=== PATIENT | female | born 1945 | race Caucasian/White ===

== ENCOUNTER 2023-12-15 06:00 | Day surgery (SDC) | payer MEDICARE, OTHER ==
[~2023-12-15 06:00] MED LIST: Sodium Chloride 0.9% 10 ML Syringe FLUSH PRN; Sodium Chloride 0.9% 10 ML Syringe FLUSH SCH
[2023-12-15] MEDS ORDERED: Propofol 200 MG/20 ML SDV ONE ×3 (06:06→07:52)
[2023-12-15] MEDS ORDERED: fentaNYL 100 MCG/2 ML SDV ONE ×2 (06:07→08:14)
[2023-12-15] MEDS ORDERED: ceFAZolin 2 GM Vial ONE (06:15)
[2023-12-15] MEDS: Lactated Ringers 1,000 ML IV SCH (06:30)
[2023-12-15] MEDS ORDERED: Midazolam 1 MG/ML 2 ML SDV ONE (07:42)
[2023-12-15] MEDS ORDERED: Lactated Ringers 1,000 ML IV ONE (08:00)
[2023-12-15] MEDS: Vancomycin 1 GM SDV ONE (08:04)
[2023-12-15] MEDS: Morphine 8 MG, EPINEPHrine 0.3 MG, Cefuroxime 750 MG, Ketorolac 30 MG, Sodium Chloride ... PRN (08:04)
[2023-12-15] MEDS: Tranexamic Acid 1,000 MG/10 ML Vial ONE (08:04)
[2023-12-15] MEDS ORDERED: HYDROmorphone 0.5 MG/0.5 ML Syringe IVPUSH PRN (08:49)
[2023-12-15] MEDS ORDERED: Ondansetron 4 MG/2 ML SDV IVPUSH PRN (08:49)
[2023-12-15] MEDS ORDERED: fentaNYL 100 MCG/2 ML SDV IVPUSH PRN (08:49)
[2023-12-15] MEDS: Acetaminophen/HYDROcodone 325-5 MG Tab PO SCH (11:11)
== END 2023-12-15 13:00 | disposition home or self-care (01) ==
LOC: JD.SDS 06:00
PROVIDERS: ATTEND Orthopaedic Surgery
DX: M16.12 Unilateral primary osteoarthritis, left hip (principal); E11.9 Type 2 diabetes mellitus without complications; E78.2 Mixed hyperlipidemia; I11.0 Hypertensive heart disease with heart failure; I50.9 Heart failure, unspecified; D64.9 Anemia, unspecified; Z79.84 Long term (current) use of oral hypoglycemic drugs; Z79.899 Other long term (current) drug therapy; Z79.82 Long term (current) use of aspirin; Z98.890 Other specified postprocedural states; Z87.891 Personal history of nicotine dependence
CPT/HCPCS: 0055T; 27130; 36415; 73501; 82947; 86850; 86900; 86901; 97110; 97116; 97161; A9270; C1713; C1776; J0171; J0690; J0697; J1885; J2250; J2270; J2704; J3010; J3370; J7120; 01214; 99100; J3490

== ENCOUNTER → 2025-03-07 | Day surgery (SDC) | payer MEDICARE ==
[~2025-03-07] MED LIST changes: +Lactated Ringers 1,000 ML IV SCH; +Morphine 8 MG, EPINEPHrine 0.3 MG, Cefuroxime 750 MG, Ketorolac 30 MG, Sodium Chloride ... PRN; +Phenylephrine 1% 10 MG/ML SDV ONE
[2025-03-07 08:23] LABS: BASOPHILS ABSOLUTE AUTO 0.0 K/mm3 (0.0-0.2); BASOPHILS PERCENT AUTO 0.4 % (0.0-1.0); EOSINOPHILS ABSOLUTE AUTO 0.1 K/mm3 (0.0-0.4); EOSINOPHILS PERCENT AUTO 1.5 % (0.0-6.0); IMMATURE GRAN ABSOLUTE AUTO 0.02 K/mm3 (0.00-0.05); IMMATURE GRAN PERCENT AUTO 0.4 % (0.0-0.4); LYMPHOCYTES ABSOLUTE AUTO 1.2 K/mm3 (1.0-4.8); LYMPHOCYTES PERCENT AUTO 22.4 % (24.0-44.0); MEAN PLATELET VOLUME 10.2 fl (9.4-12.3); MONOCYTES ABSOLUTE AUTO 0.7 K/mm3 (0.0-0.8); MONOCYTES PERCENT AUTO 12.2 % (0.0-8.0); NEUTROPHILS ABSOLUTE AUTO 3.4 K/mm3 (1.8-7.7); NEUTROPHILS PERCENT AUTO 63.1 % (41.0-71.0); NRBC ABSOLUTE 0.00 (0.00-0.02); NRBC PERCENT 0.0 % (0.0-0.2); PLATELET COUNT,PLT 186 K/mm3 (150-400); RED BLOOD CELL COUNT 3.67 M/mm3 (4.10-5.30); WHITE BLOOD CELL COUNT,WBC 5.31 K/mm3 (3.9-11.3)
[2025-03-07 08:53] LABS: INR 1.02
[2025-03-07 08:55] LABS: PTT,PARTIAL THROMBOPLSTIN TIME 26.4 SECONDS (21.7-31.4)
== END | disposition home or self-care (01) ==
LOC: JD.SDS 07:43
PROVIDERS: ATTEND Orthopaedic Surgery
DX: M16.11 Unilateral primary osteoarthritis, right hip (principal); Z53.8 Procedure and treatment not carried out for other reasons
CPT/HCPCS: 36415; 85025; 85610; 85730; J0690; J2371; J3370